=== PATIENT | male | born 2000 | race Caucasian/White ===

== ENCOUNTER 2018-03-28 12:00 | Emergency (ER) | payer BC ==
[2018-03-28 12:39] LABS: PLATELET COUNT 369 10^3/uL (150-400)
[2018-03-28] MEDS ORDERED: NS 1,000 ML IV ONE (13:18)
[2018-03-28] MEDS ORDERED: LORazepam 2 MG/ML INJ IVP ONE (13:18)
--- NOTE | 2018-03-28 13:20 | EDPHY ---
H & P Stated Complaint: first time seizure Time Seen by Provider: 03/28/18 12:54 HPI/ROS: CHIEF COMPLAINT: Seizure HISTORY OF PRESENT ILLNESS: The patient is a 18-year-old man who had a seizure this afternoon. He has never had a seizure before. I spoke to witnesses on the phone who stated that he was sitting on the couch when he suddenly jumped forward and pushed the coffee tell it away and began convulsing on the floor. They state that he had full body convulsions and was foaming at the mouth for about 2-3 minutes. The convulsions then stopped and he was confused postictal for approximately 30 min. He vomited in the ambulance. Patient states he is now back to baseline except for having a very slight headache. He does have mild tremors which he and his mom states he has had his whole life. He also admits to using cocaine about an hour before this episode. He does use cocaine before without any similar problems. He denies any recent head trauma. He denies any recent fevers or infections. He denies alcohol or benzodiazepine withdrawal. He does state that he got hardly any sleep last night. Severity: Severe Modifying factors: Resolved REVIEW OF SYSTEMS: Constitutional: denies: chills, fever, recent illness, recent injury EENTM: denies: blurred vision, double vision, nose congestion Respiratory: denies: cough, shortness of breath Cardiac: denies: chest pain, irregular heart rate, lightheadedness, palpitations Gastrointestinal/Abdominal: denies: abdominal pain, diarrhea, nausea, vomiting, blood streaked stools Genitourinary: denies: dysuria, frequency, hematuria, pain Musculoskeletal: denies: joint pain, muscle pain Skin: denies: lesions, rash, jaundice, bruising Neurological: See HPI denies: headache, numbness, paresthesia, tingling, dizziness, weakness Hematologic/Lymphatic: denies: blood clots, easy bleeding, easy bruising Immunologic/allergic: denies: HIV/AIDS, transplant 10 systems reviewed and negative except as noted EXAM: GENERAL: Well-appearing, well-nourished and in no acute distress. HEAD: Atraumatic, normocephalic. EYES: Pupils equal round and reactive to light, extraocular movements intact, sclera anicteric, conjunctiva are normal. ENT: TMs normal, nares patent, oropharynx clear without exudates. Moist mucous membranes. NECK: Normal range of motion, supple without lymphadenopathy or JVD. LUNGS: Breath sounds clear to auscultation bilaterally and equal. No wheezes rales or rhonchi. HEART: Regular rate and rhythm without murmurs, rubs or gallops. ABDOMEN: Soft, nontender, normoactive bowel sounds. No guarding, no rebound. No masses appreciated. BACK: No CVA tenderness, no spinal tenderness, step-offs or deformities EXTREMITIES: Mild tremor in all extremities, Normal range of motion, no pitting or edema. No clubbing or cyanosis. NEUROLOGICAL: Cranial nerves II through XII grossly intact. Normal speech, normal gait. 5/5 strength, normal movement in all extremities, normal sensation , normal reflexes PSYCH: Seems somewhat anxious, mom states is baseline. normal affect. SKIN: Warm, dry, normal turgor, no visible rashes or lesions. Source: Patient, Family Exam Limitations: No limitations - Personal History Current Tetanus/Diphtheria Vaccine: Yes Current Tetanus Diphtheria and Acellular Pertussis (TDAP): Yes Tetanus Vaccine Date: last 10 years - Medical/Surgical History Hx Asthma: No Hx Chronic Respiratory Disease: No Hx Diabetes: No Hx Cardiac Disease: No Hx Renal Disease: No Hx Cirrhosis: No Hx Alcoholism: No Hx HIV/AIDS: No Hx Splenectomy or Spleen Trauma: No Other PMH: lelft wrist surgery years ago - Family History Significant Family History: No pertinent family hx - Social History Smoking Status: Former smoker Alcohol Use: None Drug Use: Cocaine Constitutional: Initial Vital Signs Temperature (C) 36.9 C 03/28/18 12:07 Heart Rate 145 H 03/28/18 12:07 Respiratory Rate 18 03/28/18 12:07 Blood Pressure 153/83 H 03/28/18 12:07 O2 Sat (%) 96 03/28/18 12:07 O2 Delivery Mode Room Air Allergies/Adverse Reactions: Penicillins Allergy (Verified 03/28/18 12:10) Home Medications: Medication Instructions Recorded NK [No Known Home Meds] 03/28/18 Medical Decision Making - Diagnostics Imaging Results: Imaging Impressions Head CT 03/28/18 13:19 Impression: Normal. Results called and discussed with Dr. Abdi Pham at 03/28/2018 13:53. Imaging: Discussed imaging studies w/ animal husbandry professor Radiologist ED Course/Re-evaluation: 1:55 p.m. discussed test results with the patient and his mom. They feel reassured. The patient's heart rate has improved significantly. He still has slightly dilated pupils likely from the cocaine use. He is improved with Ativan and fluids. They feel comfortable going home at this time. We discussed driving restrictions and follow up with Neurology. Differential Diagnosis: Partial list of the Differential diagnosis considered include but were not limited to; substance abuse, seizure, epilepsy and although unlikely based on the history and physical exam, I also considered hemorrhage, tumor, infection, trauma. I discussed these differential diagnoses and the plan with the patient as well as the usual and expected course. The patient understands that the diagnosis is provisional and that in medicine we are not always correct and that further workup is often warranted. Usual and customary warnings were given. All of the patient's questions were answered. The patient was instructed to return to the emergency department should the symptoms at all worsen or return, otherwise to followup with the physician as we discussed. - Data Points Laboratory Results: Laboratory Results 03/28/18 12:34 03/28/18 12:34 03/28/18 03/28/18 12:34 12:34 WBC 19.05 10^3/uL H 10^3/uL (3.80-9.50) RBC 5.84 10^6/uL 10^6/uL (4.40-6.38) Hgb 17.5 g/dL g/dL (13.7-17.5) Hct 53.9 % H % (40.0-51.0) MCV 92.3 fL fL (81.5-99.8) MCH 30.0 pg pg (27.9-34.1) MCHC 32.5 g/dL g/dL (32.4-36.7) RDW 13.9 % % (11.5-15.2) Plt Count 369 10^3/uL 10^3/uL (150-400) MPV 12.1 fL H fL (8.7-11.7) Neut % (Auto) 72.4 % % (39.3-74.2) Lymph % (Auto) 18.6 % % (15.0-45.0) [place] % (Auto) 8.0 % % (4.5-13.0) Eos % (Auto) 0.3 % L % (0.6-7.6) Baso % (Auto) 0.3 % % (0.3-1.7) Nucleat RBC Rel Count 0.0 % % (0.0-0.2) Absolute Neuts (auto) 13.79 10^3/uL H 10^3/uL (1.70-6.50) Absolute Lymphs (auto) 3.54 10^3/uL H 10^3/uL (1.00-3.00) Absolute Monos (auto) 1.52 10^3/uL H 10^3/uL (0.30-0.80) Absolute Eos (auto) 0.06 10^3/uL 10^3/uL (0.03-0.40) Absolute Basos (auto) 0.06 10^3/uL 10^3/uL (0.02-0.10) Absolute Nucleated RBC 0.00 10^3/uL 10^3/uL (0-0.01) Immature Gran % 0.4 % % (0.0-1.1) Immature Gran # 0.08 10^3/uL 10^3/uL (0.00-0.10) RBC/WBC/PLT Morphology TNP Platelet Estimate TNP Sodium 140 mEq/L mEq/L (135-145) Potassium 3.9 mEq/L mEq/L (3.5-5.2) Chloride 98 mEq/L mEq/L (97-110) Carbon Dioxide 10 mEq/l L mEq/l (22-31) Anion Gap 32 mEq/L H mEq/L (6-14) BUN 9 mg/dL mg/dL (7-23) Creatinine 0.9 mg/dL mg/dL (0.7-1.3) Estimated GFR > 60 Glucose 126 mg/dL H mg/dL (70-100) Calcium 10.6 mg/dL H mg/dL (8.5-10.4) Medications Given: Discontinued Medications Sodium Chloride (Ns) 1,000 mls @ 0 mls/hr IV ONCE ONE; Wide Open PRN Reason: Protocol Stop: 03/28/18 13:19 Last Admin: 03/28/18 13:33 Dose: 1,000 mls Lorazepam (Ativan Injection) 1 mg IVP EDNOW ONE Stop: 03/28/18 13:19 Last Admin: 03/28/18 13:33 Dose: 1 mg Departure - Departure Disposition: Home, Routine, Self-Care Clinical Impression: Cocaine abuse, Seizure Condition: Good Instructions: Cocaine Abuse (ED), Generalized Tonic Clonic Seizures (ED) Additional Instructions: Do not drive or operate heavy machinery until your cleared by Neurology. Referrals: [facility] CARRASCO [Other] - As per Instructions Santana Nair MD [Medical Doctor] - 5-7 days, call for appt. Stand Alone Forms: School Excuse
[2018-03-28 14:17] VITALS: BP 133/73
== END 2018-03-28 14:16 | disposition home or self-care (01) ==
DX: F14.10 Cocaine abuse, uncomplicated (principal); R56.9 Unspecified convulsions; E86.9 Volume depletion, unspecified
CPT/HCPCS: 96374; J2060